=== PATIENT | male | born 1990 | race Caucasian/White ===

== ENCOUNTER 2017-10-01 11:30 | Day surgery (SDC) | payer OTHER ==
[~2017-10-01 11:30] MED LIST: Buffered Lidocaine 0.9% SYRIN* 5 ML/SYR SYRINGE INTRADERM ONE; Dexamethasone IV* 4 MG/ML 1 ML (4 MG) IV SLOW PU ONE; Famotidine IV* 10 MG/ML 2 ML (20 mg) IV ONE
[2017-10-01] MEDS ORDERED: Dexamethasone IV* 4 MG/ML 1 ML (4 MG) ONE ×2 (11:33→11:44)
[2017-10-01] MEDS ORDERED: Famotidine IV* 10 MG/ML 2 ML (20 mg) ONE ×2 (11:33→11:44)
[2017-10-01] MEDS ORDERED: Buffered Lidocaine 0.9% SYRIN* 5 ML/SYR SYRINGE ONE (11:45)
[2017-10-01] MEDS ORDERED: Mivacurium Chloride* 20 MG/10 ML VIAL IV ONE (13:16)
[2017-10-01] MEDS ORDERED: Lidocaine 2% PF * 5 ML VIAL ONE (13:17)
[2017-10-01] MEDS ORDERED: Propofol* 10 MG/ML 20 ML BTL IV PUSH ONE (13:17)
[2017-10-01] MEDS ORDERED: fentaNYL* 50 MCG/ML 2 ML VIAL (100 MCG VIAL) ONE ×3 (13:18→14:01)
[2017-10-01] MEDS ORDERED: Ondansetron INJ* 2 MG/ML VIAL ONE (13:28)
[2017-10-01] MEDS ORDERED: PROCHLORPERAZINE INJ 5 MG/ML 2 ML VIAL IV PRN (13:39)
[2017-10-01] MEDS ORDERED: fentaNYL* 50 MCG/ML 2 ML VIAL (100 MCG VIAL) IV PRN (13:39)
[2017-10-01] MEDS ORDERED: HYDROcodone/ACETAMIN 5-325 MG* 1 TAB PO PRN (13:39)
[2017-10-01] MEDS ORDERED: oxyCODONE/Acetamin 5/325 MG* TAB PO PRN (13:39)
[2017-10-01] MEDS ORDERED: HYDROcodone/ACETAMIN 5-325 MG* 1 TAB ONE (14:08)
[2017-10-01] MEDS ORDERED: oxyCODONE ORAL.SOLN* 5 MG/5 ML UDC ONE (14:47)
[2017-10-01 15:38] VITALS: BP 133/90
--- NOTE | 2017-10-02 05:37 | OP ---
DATE OF OPERATION: 10/01/17 - SDS DATE OF : 89 SURGEON: Chong Martínez MD ANESTHESIOLOGIST: Oumar Lawson MD ANESTHESIA: General endotracheal anesthesia. PRE-OP DIAGNOSIS: Chronic tonsillitis with recurrent peritonsillar abscesses. POST-OP DIAGNOSIS: Chronic tonsillitis with recurrent peritonsillar abscesses. OPERATIVE PROCEDURE: Tonsillectomy. COMPLICATIONS: None. DISPOSITION: Good. SPECIMENS: Left and right tonsils and a third specimen was for papillomatous growth from the right oropharynx. ESTIMATED BLOOD LOSS: Minimum. DESCRIPTION OF PROCEDURE: The patient was taken to the operating room and placed in the supine position on the operating table. General anesthesia was induced and he was orotracheally intubated, turned and draped for surgery. Monalisa-Javad mouth gag was inserted, retraction was applied, suspended from the Estrada stand. What I saw was a papillomatous growth coming off the right oropharynx. I used Bovie and took this off separately and sent it to Pathology. The right tonsil was grasped, manual traction applied. Using Bovie cautery, it was dissected along its capsule, removing it from the underlying pharyngeal musculature. Left tonsil was grasped, manual traction was applied. Again, using Bovie cautery, it was dissected along its capsule, removing it from the underlying pharyngeal musculature. This was was with a peritonsillar abscess and it was a very fibrotic plane. Hemostasis was ensured in both tonsillar fossae using the suction cautery. Hemostasis was ensured. Orogastric tube was inserted into the stomach; stomach contents were suctioned. Monalisa-Javad mouth gag was released and removed. The patient tolerated the procedure well, no complications, transferred to the recovery room in stable condition. [id number] #: [id number] MTDD
== END 2017-10-01 15:39 | disposition home or self-care (01) ==
LOC: OR 11:30
PROVIDERS: ATTEND Otolaryngology
DX: J03.91 Acute recurrent tonsillitis, unspecified (principal); D10.4 Benign neoplasm of tonsil; F31.9 Bipolar disorder, unspecified
CPT/HCPCS: 88304; 88305; A9270-GY; J1100; J2405; J2704; J3010

== ENCOUNTER 2019-05-22 19:54 | Emergency (ER) | payer OTHER ==
[2019-05-22 20:08] VITALS: BP 137/76
[2019-05-22] MEDS ORDERED: Ibuprofen TAB* 600 MG PO ONE (20:08)
--- NOTE | 2019-05-22 20:09 | UC ---
Hand/Wrist HPI - HPI Summary HPI Summary: 29 yo male presents about 30 minutes after a B-ball injury to RLF deformed he is right handed - History Of Current Complaint Stated Complaint: FINGER INJURY Time Seen by Provider: 05/22/19 19:59 Hx Obtained From: Patient Onset/Duration: Sudden Onset Severity Initially: Moderate Severity Currently: Moderate Pain Intensity: 6 Pain Scale Used: 0-10 Numeric Character Of Pain: Sharp Aggravating Factor(s): Movement Alleviating Factor(s): Rest Associated Signs And Symptoms: Positive: Swelling Related History: Dominant Hand Right Hands: 1 - deformity here - Allergies/Home Medications Allergies/Adverse Reactions: Allergies Allergy/AdvReac Type Severity Reaction Status Date / Time No Known Allergies Allergy Verified 05/22/19 20:06 PMH/Surg Hx/FS Hx/Imm Hx Previously Healthy: Yes - Surgical History Surgical History: None Surgery Procedure, Year, and Place: wisdom teeth removed 2009 - Family History Known Family History: Positive: Hypertension - Social History Alcohol Use: Occasionally Substance Use Type: Marijuana Substance Use Comment - Amount & Last Used: cocaine once and chronic marijuana Smoking Status (MU): Never Smoked Tobacco - Immunization History Most Recent Influenza Vaccination: pt. reports this season Most Recent Tetanus Shot: unknown Most Recent Pneumonia Vaccination: unknown Review of Systems All Other Systems Reviewed And Are Negative: Yes Constitutional: Positive: Negative Skin: Positive: Negative Eyes: Positive: Negative ENT: Positive: Negative Respiratory: Positive: Negative Cardiovascular: Positive: Negative Gastrointestinal: Positive: Negative Genitourinary: Positive: Negative Motor: Positive: Negative Neurovascular: Positive: Negative Musculoskeletal: Positive: Arthralgia Neurological: Positive: Negative Psychological: Positive: Negative Physical Exam Triage Information Reviewed: Yes Appearance: Well-Appearing, No Pain Distress, Well-Nourished Vital Signs Reviewed: Yes Eyes: Positive: Conjunctiva Clear ENT: Positive: Hearing grossly normal. Negative: Nasal congestion, Nasal drainage Neck: Positive: Supple, Nontender, No Lymphadenopathy Respiratory: Positive: Lungs clear, Normal breath sounds, No respiratory distress, No accessory muscle use Cardiovascular: Positive: RRR, No Murmur Musculoskeletal: Positive: ROM Limited @ - unable to move RLF PIP Neurological: Positive: Alert Psychological Exam: Normal Skin Exam: Normal Procedures - Procedure Summary Procedure Summary: Procedure: Reduction of right little finger PIP Dislocation using axial traction tolerated procedure well Diagnostics - Radiology No standard instances Radiology Interpretation Completed By: ED Physician Summary of Radiographic Findings: dislocation PIP with volar fx. post reduction displaced volar plate fx Hand/Wrist Course/Dx - Differential Dx/Diagnosis Provider Diagnosis: Volar plate injury of finger, Dislocation of PIP joint of finger, Fracture of phalanx of right little finger Discharge - Sign-Out/Discharge Documenting (check all that apply): Patient Departure All imaging exams completed and their final reports reviewed: No - Discharge Plan Condition: Stable Disposition: HOME Patient Education Materials: Finger Fracture (ED), Finger Dislocation (ED) Referrals: Terell George MD [Medical Doctor] - As Soon As Possible Additional Instructions: splint elevate advil or aleve please follow up with orthopedist for this injury you fracture is small but displaced - Billing Disposition and Condition Condition: STABLE Disposition: Home
--- NOTE | 2019-05-23 14:53 | UC ---
- Progress Note Progress Note: RADIOLOGY REPORTS REVIEWED FOR PRE AND POST REDUCTION FILMS: Prereduction exam documents dorsal ulnar dislocation at the fifth proximal interphalangeal joint. Associated volar base avulsion fracture from the middle phalanx. Fusiform soft tissue swelling. Postreduction exam documents restored alignment at the proximal interphalangeal joint. Approximate 3 mm volar displacement of the volar base avulsion fracture and rotation of the fragment with resulting articular surface discontinuity and incongruity. Fusiform soft tissue swelling. NO CHANGE IN MGMT. Course/Dx - Diagnoses Provider Diagnoses: Volar plate injury of finger, Dislocation of PIP joint of finger, Fracture of phalanx of right little finger Discharge - Sign-Out/Discharge Documenting (check all that apply): Post-Discharge Follow Up All imaging exams completed and their final reports reviewed: Yes - Discharge Plan Condition: Stable Disposition: HOME Patient Education Materials: Finger Fracture (ED), Finger Dislocation (ED) Referrals: Terell George MD [Medical Doctor] - As Soon As Possible Additional Instructions: splint elevate advil or aleve please follow up with orthopedist for this injury you fracture is small but displaced - Billing Disposition and Condition Condition: STABLE Disposition: Home
== END 2019-05-22 20:40 | disposition home or self-care (01) ==
LOC: UCEAST 19:54
DX: S62.616A Displaced fracture of proximal phalanx of right little finger, initial encounter for closed fracture (principal); X58.XXXA Exposure to other specified factors, initial encounter; Y93.64 Activity, baseball; Y92.320 Baseball field as the place of occurrence of the external cause; Y99.8 Other external cause status
CPT/HCPCS: 73140; 99212; A9270-GY; G0463